=== PATIENT | female | born 2000 | race African-American/Black ===

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

== ENCOUNTER → 2018-05-22 | Outpatient (CLI) | payer BC ==
--- NOTE | 2018-05-22 15:12 | WOMENS IMAGING REPORT ---
EXAM DESCRIPTION: U/S BREAST UNILATERAL, COMPL COMPLETED DATE/TIME: 05/22/2018 1:50 pm REASON FOR STUDY: N64.9 DISORDER OF BREAST, UNSPECIFIED RIGHT N64.9 DISORDER OF BREAST, UNSPECIFIED COMPARISON: None. TECHNIQUE: Real-time and static grayscale imaging performed of the right breast targeted to the area of clinical/mammographic concern. Selected color Doppler images recorded. LIMITATIONS: None. FINDINGS: MASS: No suspicious mass. OTHER: Physiologic lymph nodes. IMPRESSION: No suspicious findings detected by ultrasound. BIRAD: 1 Negative. RECOMMENDATION: RECOMMENDED FOLLOW-UP: Follow-up as clinically indicated. COMMENT: The [employer] (ACR) has developed recommendations for screening MRI of the breasts in certain patient populations, to be used in conjunction with mammography. Breast MRI s urveillance may be appropriate for women with more than 20% lifetime risk of developing breast cancer as determined by genetic testing, significant family history of the disease, or history of mantle r adiation for Hodgkins Disease. ACR Practice Guidelines 2008. TECHNICAL DOCUMENTATION: JOB ID: [id number] [employer]- All Rights Reserved Reading location - IP/workstation name: [email or web address]
--- NOTE | 2018-05-22 15:13 | WOMENS IMAGING REPORT ---
EXAM DESCRIPTION: U/S BREAST UNILATERAL, COMPL COMPLETED DATE/TIME: 05/22/2018 1:50 pm REASON FOR STUDY: N64.9 DISORDER OF BREAST, UNSPECIFIED LEFT N64.9 DISORDER OF BREAST, UNSPECIFIED COMPARISON: None. TECHNIQUE: Real-time and static grayscale imaging performed of the left breast targeted to the area of clinical/mammographic concern. Selected color Doppler images recorded. LIMITATIONS: None. FINDINGS: MASS: No suspicious mass. Physiologic lymph nodes. OTHER: No other significant finding. IMPRESSION: No suspicious findings detected by ultrasound. BIRAD: 1 Negative. RECOMMENDATION: RECOMMENDED FOLLOW-UP: Follow-up as clinically indicated. COMMENT: The [employer] (ACR) has developed recommendations for screening MRI of the breasts in certain patient populations, to be used in conjunction with mammography. Breast MRI s urveillance may be appropriate for women with more than 20% lifetime risk of developing breast cancer as determined by genetic testing, significant family history of the disease, or history of mantle r adiation for Hodgkins Disease. ACR Practice Guidelines 2008. TECHNICAL DOCUMENTATION: JOB ID: [id number] [employer]- All Rights Reserved Reading location - IP/workstation name: [email or web address]
== END ==
LOC: WI 12:31
PROVIDERS: ATTEND Physician Assistant
DX: N64.89 Other specified disorders of breast (principal)
CPT/HCPCS: 76641

== ENCOUNTER 2018-08-26 01:48 | Emergency (ER) | payer BC ==
[2018-08-26] MEDS ORDERED: ONDANSETRON HCL INJ/PF 4 MG/2 ML SDV IV ONE (02:48)
[2018-08-26] MEDS ORDERED: FENTANYL CITRATE INJ/PF 100 MCG/2 ML AMPUL IV ONE (02:48)
--- NOTE | 2018-08-26 03:28 | RADIOLOGY REPORT (SQ) ---
EXAM DESCRIPTION: US TRANSVAGINAL COMPLETED DATE/TME: 08/26/2018 02:48 CLINICAL HISTORY: 17 years, Female, R pelvic pain COMPARISON: None. TECHNIQUE: Transverse longitudinal transvaginal sonographic images of the pelvis LIMITATIONS: None. FINDINGS: The uterus measures 6.9 x 3.3 x 4.7 cm. The endometrium measures 2.8 mm in thickness. The right ovary measures 3.6 x 1.7 x 3.5 cm, the left 3.2 x 2.1 x 2.60 m. Arterial and venous flow to both ovaries. Bilateral ovarian follicles. No solid adnexal mass. No free fluid. The myometrium is homogenous IMPRESSION: Unremarkable exam copyright 2010 [employer]- All Rights Reserved
[2018-08-26 03:29] LABS: APPEARANCE,URINE CLEAR; BILIRUBIN,URINE NEGATIVE (NEGATIVE); COLOR,URINE YELLOW; GLUCOSE, URINE NEGATIVE (NEGATIVE); KETONES,URINE NEGATIVE (NEGATIVE); LEUKOCYTE ESTERASE,URINE NEGATIVE (NEGATIVE); NITRITE,URINE NEGATIVE (NEGATIVE); PROTEIN,URINE NEGATIVE (NEGATIVE); UROBILINOGEN,URINE NEGATIVE mg/dL (<2.0)
[2018-08-26 03:48] LABS: ABSOLUTE BASOPHILS # (AUTO) 0.1 10^3/uL (0.0-0.2); ABSOLUTE EOSINOPHILS # (AUTO) 0.1 10^3/uL (0.0-0.6); ABSOLUTE LYMPHOCYTES (AUTO) 1.7 10^3/uL (0.5-4.7); ABSOLUTE MONOCYTES (AUTO) 0.4 10^3/uL (0.1-1.4); ABSOLUTE NEUT (AUTO) 1.6 10^3/uL (1.7-8.2); BASOPHILS % (AUTO) 1.7 % (0-2); EOSINOPHILS % (AUTO) 1.8 % (0-6); HEMOGLOBIN 13.5 g/dL (12.0-15.5); LYMPHOCYTES % (AUTO) 43.5 % (13-45); MEAN CORPUSCULAR HEMOGLOBIN 29.1 pg (27.0-33.4); MEAN CORPUSCULAR HGB CONC 33.8 g/dL (32.0-36.0); MEAN CORPUSCULAR VOLUME 86 fl (80-97); MONOCYTES % (AUTO) 10.5 % (3-13); PLATELET COUNT 268 10^3/uL (150-450); RED BLOOD COUNT 4.64 10^6/uL (3.72-5.28); RED CELL DISTRIBUTION WIDTH 13.3 % (11.5-14.0); SEGMENTED NEUTROPHILS % (AUTO) 42.5 % (42-78); TOTAL CELLS COUNTED % (AUTO) 100 %; WHITE BLOOD COUNT 3.9 10^3/uL (4.0-10.5)
[2018-08-26] MEDS ORDERED: CEFTRIAXONE INJ 250 MG VIAL IM ONE (04:04)
[2018-08-26] MEDS ORDERED: AZITHROMYCIN 250 MG TABLET PO ONE (04:07)
[2018-08-26 04:08] LABS: ALANINE AMINOTRANSFERASE 16 U/L (5-35); ALBUMIN 4.4 g/dL (3.7-5.6); ALKALINE PHOSPHATASE 67 U/L (50-135); ANION GAP 13 (5-19); ASPARTATE AMINO TRANSFERASE 21 U/L (5-30); BILIRUBIN,DIRECT 0.4 mg/dL (0.0-0.4); BILIRUBIN,TOTAL 0.4 mg/dL (0.2-1.3); BLOOD UREA NITROGEN 15 mg/dL (7-20); CALCIUM 9.3 mg/dL (8.4-10.2); CARBON DIOXIDE 22 mmol/L (22-30); CHLORIDE 107 mmol/L (98-107); GLUCOSE 101 mg/dL (75-110); POTASSIUM 4.4 mmol/L (3.6-5.0); SODIUM 142.3 mmol/L (137-145); TOTAL PROTEIN 7.7 g/dL (6.3-8.2)
[2018-08-26] MEDS ORDERED: DOXYCYCLINE HYCLATE 100 MG TABLET PO ONE (04:08)
[2018-08-26 04:16] LABS: RBCS (WET MOUNT) FEW RBCS SEEN; T.VAGINALIS (WET MOUNT) NO TRICHOMONAS SEEN; WBCS (WET MOUNT) NO WBCS SEEN; YEAST (WET MOUNT) NO YEAST SEEN
--- NOTE | 2018-08-26 05:23 | ER Document Report ---
ED General - General Chief Complaint: Abdominal Pain Stated Complaint: ABDOMINAL PAIN Time Seen by Provider: 08/26/18 02:55 Primary Care Provider: SASHA REN PA [Primary Care Provider] - Follow up as needed Notes: Patient is an otherwise healthy 17-year-old female presents to the emergency department for right pelvic pain. Patient states she has had this pain intermittently for the last week. States the right pelvic pain became intense this evening which is why she presents to the emergency room. Patient's denying any dysuria but is complaining of generalized malodorous vaginal discharge. Patient states she is unsure when her last menstrual cycle was because she is on Depakote as control. Patient is denying any vomiting, diarrhea, abdominal pain, fevers. Surgical history: Appendectomy TRAVEL OUTSIDE OF THE [place] IN LAST 30 DAYS: No - Related Data Allergies/Adverse Reactions: No Known Allergies Allergy (Verified 08/26/18 01:50) Past Medical History - General Information source: Patient - Social History Smoking Status: Unknown if Ever Smoked Family History: Reviewed & Not Pertinent Review of Systems - Review of Systems Constitutional: denies: Fever EENT: No symptoms reported Cardiovascular: No symptoms reported Respiratory: No symptoms reported Gastrointestinal: See HPI Genitourinary: See HPI Female Genitourinary: See HPI Musculoskeletal: No symptoms reported Skin: No symptoms reported Hematologic/Lymphatic: No symptoms reported Neurological/Psychological: No symptoms reported Physical Exam - Vital signs Vitals: Temp Pulse Resp BP Pulse Ox 98.3 F 84 20 140/77 H 100 08/26/18 01:54 08/26/18 01:54 08/26/18 01:54 08/26/18 01:54 08/26/18 01:54 - Notes Notes: GENERAL: Alert, interacts well. No acute distress. HEAD: Normocephalic, atraumatic. EYES: Pupils equal, round, and reactive to light. Extraocular movements intact. ENT: Oral mucosa moist, tongue midline. NECK: Full range of motion. Supple. Trachea midline. LUNGS: Clear to auscultation bilaterally, no wheezes, rales, or rhonchi. No respiratory distress. HEART: Regular rate and rhythm. No murmur ABDOMEN: Soft, non-tender. Non-distended. Bowel sounds present in all 4 quadrants. Right pelvic pain noted EXTREMITIES: Moves all 4 extremities spontaneously. No edema, normal radial and dorsalis pedis pulses bilaterally. No cyanosis. BACK: no cervical, thoracic, lumbar midline tenderness. No saddle anesthesia, normal distal neurovascular exam. NEUROLOGICAL: Alert and oriented x3. Normal speech. cranial nerves II through XII grossly intact. PSYCH: Normal affect, normal mood. SKIN: Warm, dry, normal turgor. No rashes or lesions noted. Pelvic: Traveling Representative Jessika RN white malodorous discharge noted in the cul-de-sac, positive cervical motion tenderness noted, no adnexal tenderness noted bilaterally. Course - Re-evaluation Re-evalutation: 08/26/18 05:23 Laboratory 08/26/18 08/26/18 08/26/18 03:12 03:38 03:38 WBC 3.9 L RBC 4.64 Hgb 13.5 Hct 40.0 MCV 86 MCH 29.1 MCHC 33.8 RDW 13.3 Plt Count 268 Seg Neutrophils % 42.5 Lymphocytes % 43.5 Monocytes % 10.5 Eosinophils % 1.8 Basophils % 1.7 Absolute Neutrophils 1.6 L Absolute Lymphocytes 1.7 Absolute Monocytes 0.4 Absolute Eosinophils 0.1 Absolute Basophils 0.1 Sodium 142.3 Potassium 4.4 Chloride 107 Carbon Dioxide 22 Anion Gap 13 BUN 15 Creatinine 0.68 Est GFR ( Amer) > 60 Est GFR (Non-Af Amer) > 60 Glucose 101 Calcium 9.3 Total Bilirubin 0.4 Direct Bilirubin 0.4 Neonat Total Bilirubin Not Reportable Neonat Direct Bilirubin Not Reportable Neonat Indirect Bili Not Reportable AST 21 ALT 16 Alkaline Phosphatase 67 Total Protein 7.7 Albumin 4.4 Urine Color YELLOW Urine Appearance CLEAR Urine pH 5.0 Ur Specific [place] 1.020 Urine Protein NEGATIVE Urine Glucose (UA) NEGATIVE Urine Ketones NEGATIVE Urine Blood NEGATIVE Urine Nitrite NEGATIVE Urine Bilirubin NEGATIVE Urine Urobilinogen NEGATIVE Ur Leukocyte Esterase NEGATIVE Urine WBC (Auto) 1 Urine RBC (Auto) 0 Squamous Epi Cells Auto 2 Urine Mucus (Auto) RARE Urine Ascorbic Acid NEGATIVE Urine HCG, Qual NEGATIVE Trichomonas (Wet Prep) Vaginal WBC Vaginal RBC Vaginal Yeast 08/26/18 04:02 WBC RBC Hgb Hct MCV MCH MCHC RDW Plt Count Seg Neutrophils % Lymphocytes % Monocytes % Eosinophils % Basophils % Absolute Neutrophils Absolute Lymphocytes Absolute Monocytes Absolute Eosinophils Absolute Basophils Sodium Potassium Chloride Carbon Dioxide Anion Gap BUN Creatinine Est GFR ( Amer) Est GFR (Non-Af Amer) Glucose Calcium Total Bilirubin Direct Bilirubin Neonat Total Bilirubin Neonat Direct Bilirubin Neonat Indirect Bili AST ALT Alkaline Phosphatase Total Protein Albumin Urine Color Urine Appearance Urine pH Ur Specific [place] Urine Protein Urine Glucose (UA) Urine Ketones Urine Blood Urine Nitrite Urine Bilirubin Urine Urobilinogen Ur Leukocyte Esterase Urine WBC (Auto) Urine RBC (Auto) Squamous Epi Cells Auto Urine Mucus (Auto) Urine Ascorbic Acid Urine HCG, Qual Trichomonas (Wet Prep) NO TRICHOMONAS SEEN Vaginal WBC NO WBCS SEEN Vaginal RBC FEW RBCS SEEN Vaginal Yeast NO YEAST SEEN Transvaginal US 08/26/18 02:48 IMPRESSION: Unremarkable exam copyright 2010 [employer]- All Rights Reserved Patient has been prophylactically treated for gonorrhea and chlamydia in the emergency department. Her ultrasound shows no signs of ovarian torsion based on patient's physical examination with cervical motion tenderness I will treat for pelvic inflammatory disease. Discussed this at length with patient at bedside. Patient voices understanding, stable for discharge. - Vital Signs Vital signs: Temp Pulse Resp BP Pulse Ox 98.3 F 84 20 140/77 H 100 08/26/18 01:54 08/26/18 01:54 08/26/18 01:54 08/26/18 01:54 08/26/18 01:54 - Laboratory Result Diagrams: 08/26/18 03:38 08/26/18 03:38 Laboratory results interpreted by me: 08/26/18 03:38 WBC 3.9 L Absolute Neutrophils 1.6 L Discharge - Discharge Clinical Impression: Pelvic inflammatory disease Condition: Stable Disposition: HOME, SELF-CARE Instructions: Pelvic Inflammatory Disease ([facility]) Additional Instructions: As we discussed you have been seen and treated in the emergency department for pelvic inflammatory disease. 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 Please also make sure you follow-up with your primary care provider in the next 24 to 48 hours. Please return to the emergency room for any other concerns. Prescriptions: Doxycycline Hyclate 100 mg PO BID 14 Days capsule Referrals: SASHA REN PA [Primary Care Provider] - Follow up as needed
[2018-08-26 05:41] LABS: CHLAM PCR NOT DETECTED (NOT DETECT); GON PCR NOT DETECTED (NOT DETECT)
[2018-08-26 05:46] VITALS: BP 119/65
== END 2018-08-26 05:45 | disposition home or self-care (01) ==
LOC: ER 01:48
DX: N73.9 Female pelvic inflammatory disease, unspecified (principal); R10.31 Right lower quadrant pain; R10.2 Pelvic and perineal pain
CPT/HCPCS: 99284; 96372; 96374; 96375; 36415; 87086; 87210; 85025; 81025; 80053; 81001; 87491; 87591; 76830; 93976; J3010; J2405; J0696

== ENCOUNTER 2019-09-24 07:30 | Emergency (ER) | payer BC, OTHER ==
[2019-09-24 09:13] LABS: ABSOLUTE LYMPHOCYTES (AUTO) 0.9 10^3/uL (0.5-4.7); ABSOLUTE MONOCYTES (AUTO) 0.5 10^3/uL (0.1-1.4); ABSOLUTE NEUT (AUTO) 4.6 10^3/uL (1.7-8.2); BASOPHILS % (AUTO) 0.5 % (0-2); EOSINOPHILS % (AUTO) 0.3 % (0-6); HEMATOCRIT 43.8 % (36.0-47.0); LYMPHOCYTES % (AUTO) 15.2 % (13-45); MEAN CORPUSCULAR HEMOGLOBIN 31.5 pg (27.0-33.4); MEAN CORPUSCULAR HGB CONC 34.2 g/dL (32.0-36.0); MEAN CORPUSCULAR VOLUME 92 fl (80-97); MONOCYTES % (AUTO) 7.8 % (3-13); PLATELET COUNT 322 10^3/uL (150-450); RED BLOOD COUNT 4.75 10^6/uL (3.72-5.28); RED CELL DISTRIBUTION WIDTH 13.2 % (11.5-14.0); SEGMENTED NEUTROPHILS % (AUTO) 76.2 % (42-78); TOTAL CELLS COUNTED % (AUTO) 100 %; WHITE BLOOD COUNT 6.1 10^3/uL (4.0-10.5)
[2019-09-24 09:28] LABS: ALBUMIN 4.8 g/dL (3.5-5.0); ALKALINE PHOSPHATASE 61 U/L (38-126); ANION GAP 10 (5-19); ASPARTATE AMINO TRANSFERASE 19 U/L (14-36); BILIRUBIN,TOTAL 0.3 mg/dL (0.2-1.3); BLOOD UREA NITROGEN 10 mg/dL (7-20); CALCIUM 10.2 mg/dL (8.4-10.2); CARBON DIOXIDE 24 mmol/L (22-30); CHLORIDE 105 mmol/L (98-107); GLUCOSE 116 mg/dL (75-110); POTASSIUM 4.4 mmol/L (3.6-5.0); TOTAL PROTEIN 8.5 g/dL (6.3-8.2)
[2019-09-24 09:57] LABS: AMORPHOUS SEDIMENT,URINE 1+ /HPF; APPEARANCE,URINE TURBID; BILIRUBIN,URINE NEGATIVE (NEGATIVE); COLOR,URINE YELLOW; GLUCOSE, URINE NEGATIVE (NEGATIVE); KETONES,URINE NEGATIVE (NEGATIVE); LEUKOCYTE ESTERASE,URINE NEGATIVE (NEGATIVE); NITRITE,URINE NEGATIVE (NEGATIVE); PROTEIN,URINE 30 mg/dL (NEGATIVE); URINE SPECIFIC GRAVITY 1.032; UROBILINOGEN,URINE NEGATIVE mg/dL (<2.0)
[2019-09-24] MEDS ORDERED: ONDANSETRON HCL INJ/PF 4 MG/2 ML SDV IV ONE (10:33)
--- NOTE | 2019-09-24 10:39 | ER Document Report ---
ED GI/ - General Chief Complaint: Vomiting/Diarrhea Stated Complaint: NAUSEA Time Seen by Provider: 09/24/19 09:53 Primary Care Provider: BLU BRAUN MD [Primary Care Provider] - Follow up as needed Notes: Patient is a 18-year-old female who presents emergency department with a chief complaint of nausea, vomiting and diarrhea. Patient reports she woke up around 5 AM this morning and since then has had 10 episodes of diarrhea and one episode of vomiting. She states her parents are concerned she may have COVID as these are symptoms. She reports that her parents had diarrhea after eating the same meal last night but did not have vomiting. She denies fever but does report chills. Patient has not taken anything for her vomiting or diarrhea. Patient reports she does work at [employer] does not have a known exposure to COVID. Denies recent travel. TRAVEL OUTSIDE OF THE [place] IN LAST 30 DAYS: No - Related Data Allergies/Adverse Reactions: No Known Allergies Allergy (Verified 08/26/18 01:50) Past Medical History - General Information source: Patient - Social History Smoking Status: Never Smoker Frequency of alcohol use: None Drug Abuse: None Lives with: Family Family History: Reviewed & Not Pertinent Patient has homicidal ideation: No - Past Medical History Cardiac Medical History: Reports: None Pulmonary Medical History: Reports: None EENT Medical History: Reports: None Neurological Medical History: Reports: None Endocrine Medical History: Reports: None Renal/ Medical History: Reports: None. Denies: Hx Peritoneal Dialysis Malignancy Medical History: Reports: None GI Medical History: Reports: None Musculoskeletal Medical History: Reports None Skin Medical History: Reports None Psychiatric Medical History: Reports: None Traumatic Medical History: Reports: None Infectious Medical History: Reports: None Surgical Hx: Negative Review of Systems - Review of Systems Constitutional: No symptoms reported EENT: No symptoms reported Cardiovascular: No symptoms reported Respiratory: No symptoms reported Gastrointestinal: See HPI Genitourinary: No symptoms reported Female Genitourinary: No symptoms reported Musculoskeletal: No symptoms reported Skin: No symptoms reported Hematologic/Lymphatic: No symptoms reported Neurological/Psychological: No symptoms reported Physical Exam - Vital signs Vitals: Temp Pulse Resp BP Pulse Ox 97.8 F 84 20 130/84 H 98 09/24/19 07:34 09/24/19 07:34 09/24/19 07:34 09/24/19 07:34 09/24/19 07:34 Interpretation: Normal - Notes Notes: GENERAL: Well-appearing, well-nourished and in no acute distress. HEAD: Atraumatic, normocephalic. EYES: Pupils equal round and reactive to light, extraocular movements intact, sclera anicteric, conjunctiva are normal. ENT: Nares patent, oropharynx clear without exudates. Moist mucous membranes. NECK: Normal range of motion, supple without lymphadenopathy or JVD. LUNGS: Breath sounds clear to auscultation bilaterally and equal. No wheezes rales or rhonchi. HEART: Regular rate and rhythm without murmurs, rubs or gallops. ABDOMEN: Soft, nontender, normoactive bowel sounds. No guarding, no rebound. No masses appreciated. BACK: No cervical, thoracic, lumbar midline tenderness. No saddle anesthesia, normal distal neurovascular exam. No CVA tenderness. GENITOURINARY: Deferred. EXTREMITIES: Normal range of motion, no pitting or edema. No clubbing or cyanosis. NEUROLOGICAL: Cranial nerves II through XII grossly intact. Normal speech, normal gait. PSYCH: Normal mood, normal affect. SKIN: Warm, Dry, normal turgor, no rashes or lesions noted. Course - Re-evaluation Re-evalutation: 09/24/19 10:36 Upon initial assessment patient is nontoxic-appearing no acute distress. Patient not currently vomiting. Will give a dose of Zofran. Patient reports that the nausea, vomiting and diarrhea started this morning around 5 AM. Her parents who she does live with both had diarrhea last night after eating the same meal. States her parents are concerned she may have COVID. Patient denies any known COVID positive persons. 09/24/19 11:00 Patient states she would like to be tested for COVID. This test has been ordered. Patient no acute distress and nontoxic-appearing. I did inform the patient her likelihood of having COVID is very low but will proceed with testing. Patient verbalized understanding. - Vital Signs Vital signs: Temp Pulse Resp BP Pulse Ox 97.9 F 91 16 125/80 99 09/24/19 11:04 09/24/19 11:04 09/24/19 11:04 09/24/19 11:04 09/24/19 11:04 - Laboratory Result Diagrams: 09/24/19 08:50 09/24/19 08:50 Laboratory results interpreted by me: 09/24/19 09/24/19 08:50 09:45 Glucose 116 H Total Protein 8.5 H Urine Protein 30 H Urine Ascorbic Acid 20 H 09/24/19 10:36 Patient does have leukocytosis, anemia, alteration electrolytes or kidney function. Patient negative for ketones in the urine. Patient urine hCG is negative. Laboratory 09/24/19 09/24/19 09/24/19 08:50 08:50 09:45 WBC 6.1 RBC 4.75 Hgb 15.0 Hct 43.8 MCV 92 MCH 31.5 MCHC 34.2 RDW 13.2 Plt Count 322 Lymph % (Auto) 15.2 [place] % (Auto) 7.8 Eos % (Auto) 0.3 Baso % (Auto) 0.5 Absolute Neuts (auto) 4.6 Absolute Lymphs (auto) 0.9 Absolute Monos (auto) 0.5 Absolute Eos (auto) 0.0 Absolute Basos (auto) 0.0 Seg Neutrophils % 76.2 Sodium 138.9 Potassium 4.4 Chloride 105 Carbon Dioxide 24 Anion Gap 10 BUN 10 Creatinine 0.75 Est GFR ( Amer) > 60 Est GFR (MDRD) Non-Af > 60 Glucose 116 H Calcium 10.2 Total Bilirubin 0.3 Direct Bilirubin 0.0 Neonat Total Bilirubin Not Reportable Neonat Direct Bilirubin Not Reportable Neonat Indirect Bili Not Reportable AST 19 ALT 11 Alkaline Phosphatase 61 Total Protein 8.5 H Albumin 4.8 Urine Color YELLOW Urine Appearance TURBID Urine pH 5.0 Ur Specific [place] 1.032 Urine Protein 30 H Urine Glucose (UA) NEGATIVE Urine Ketones NEGATIVE Urine Blood NEGATIVE Urine Nitrite NEGATIVE Urine Bilirubin NEGATIVE Urine Urobilinogen NEGATIVE Ur Leukocyte Esterase NEGATIVE Squamous Epi Cells Auto 8 Amorphous Sediment Auto 1+ Urine Mucus (Auto) MANY Urine Ascorbic Acid 20 H Urine HCG, Qual 09/24/19 09:45 WBC RBC Hgb Hct MCV MCH MCHC RDW Plt Count Lymph % (Auto) [place] % (Auto) Eos % (Auto) Baso % (Auto) Absolute Neuts (auto) Absolute Lymphs (auto) Absolute Monos (auto) Absolute Eos (auto) Absolute Basos (auto) Seg Neutrophils % Sodium Potassium Chloride Carbon Dioxide Anion Gap BUN Creatinine Est GFR ( Amer) Est GFR (MDRD) Non-Af Glucose Calcium Total Bilirubin Direct Bilirubin Neonat Total Bilirubin Neonat Direct Bilirubin Neonat Indirect Bili AST ALT Alkaline Phosphatase Total Protein Albumin Urine Color Urine Appearance Urine pH Ur Specific [place] Urine Protein Urine Glucose (UA) Urine Ketones Urine Blood Urine Nitrite Urine Bilirubin Urine Urobilinogen Ur Leukocyte Esterase Squamous Epi Cells Auto Amorphous [place] Auto Urine Mucus (Auto) Urine Ascorbic Acid Urine HCG, Qual NEGATIVE Discharge - Discharge Clinical Impression: Nausea & vomiting Qualifiers: Vomiting type: unspecified Diarrhea Qualifiers: Diarrhea type: unspecified type Qualified Code(s): R19.7 - Diarrhea, unspecified Condition: Stable Disposition: HOME, SELF-CARE Additional Instructions: *Today was in the emergency department for nausea, vomiting and diarrhea. Since her family did have similar symptoms including diarrhea this could be some sort of gastroenteritis/food poisoning. I have given you a dose of Zofran which is an antinausea medication. I will also give you prescription for this. Please return emergency department if your symptoms return or worsen. Nausea or Vomiting, Nonspecific Vomiting (or nausea without vomiting) can be caused by many different problems. Of course, it can mean that something's wrong with the stomach, such as "stomach flu," ulcers, or inflammation. But it can also be a symptom of a problem that has nothing to do with the stomach or intestines. Vomiting is common with severe headaches, earaches, and tonsillitis. We see it with pneumonia or heart attacks. Drugs can cause nausea. Many abdominal problems cause vomiting; for example, gallstones, kidney stones, pancreatitis, and intestinal obstruction (blocked bowels). In most cases, curing the vomiting depends on fixing the problem that c aused it. For temporary relief, we may use an anti-nausea medicine. For home use, we can prescribe suppositories, chewable pills, pills that dissolve in the mouth, or liquid anti-nausea drugs. If the vomiting seems to be caused by a problem in the stomach, acid-suppressing drugs may be prescribed as well. It's important to avoid dehydration. Sip clear liquids. Take increasing amounts of fluid over the first 24 hours. Then start small amounts of bland foods (such as dry toast, applesauce, mashed potato). Avoid aspirin, tobacco, and alcohol. Gradually resume your usual diet. If the vomiting worsens, if the problem that's making you vomit worsens, or if there's evidence of bleeding in the stomach (such as black, tarry stool, bloody or black vomit, or lightheadedness), you should return immediately. Call your doctor if you aren't improved in 24 to 36 hours. Diarrhea Diarrhea means frequent, watery stools. There are many causes. Any problem that keeps the intestinal tract from absorbing water from the stool can lead to diarrhea. A sudden new diarrhea problem is usually caused by a virus, food sensitivity, toxic bacteria, or drugs. In this case, we expect the problem to go away soon. Testing is done only if you seem seriously ill from the diarrhea. If you have chronic diarrhea, or diarrhea that keeps coming back, we need to find out why. Chronic diarrhea can be due to inflammation of the bowels such as Crohn's disease or ulcerative colitis, food sensitivity such as intolerance to lactose or wheat protein, irritable bowel syndrome, and other problems. If your diarrhea is a significant problem but it's not clear why you have it, we'll refer you to a specialist for further testing. During an episode of diarrhea, drink small amounts (two to six ounces) of clear liquids (soft drinks, sport drinks, herb teas, broth, etc). Take fluids frequently to prevent dehydration. It's usually not a problem to take mild anti-diarrhea medication such as Kaopectate or Pepto-Bismol. As the diarrhea eases, advance to small amounts of bland food (mashed potato, toast) for 24 hours. Call the physician if blood appears in your vomit or stool, if vomiting lasts longer than 24 hours, if the abdominal pain worsens or becomes localized to one area, if you develop high fever, or if you become lightheaded and weak. Prescriptions: Ondansetron [Zofran Odt 4 mg Tablet] 1 tab PO Q4H PRN #15 tab.rapdis PRN Reason: For Nausea/Vomiting Referrals: BLU BRAUN MD [Primary Care Provider] - Follow up as needed
[2019-09-24 11:05] VITALS: BP 125/80
== END 2019-09-24 11:05 | disposition home or self-care (01) ==
LOC: ER 07:30
DX: R11.2 Nausea with vomiting, unspecified (principal); R19.7 Diarrhea, unspecified; R68.83 Chills (without fever); D72.829 Elevated white blood cell count, unspecified; D64.9 Anemia, unspecified; Z20.828 Contact with and (suspected) exposure to other viral communicable diseases
CPT/HCPCS: 99284; 96374; 36415; 85025; 87635; 81025; 80053; 81001; J2405; C9803